=== PATIENT | male | born 1945 | race African-American/Black ===

== ENCOUNTER 2018-11-17 10:24 | Emergency (ER) | payer OTHER ==
[~2018-11-17] VITALS: Ht 175.3 cm; Wt 67.9 kg
[2018-11-17 10:56] LABS: BASOPHILS % 1.3 % (0.0-2.0); EOSINOPHILS % 1.1 % (0.0-5.0); HEMATOCRIT. 49.9 % (42.0-52.0); HEMOGLOBIN. 16.8 g/dL (14.0-18.0); LYMPHOCYTES % 20.1 % (20.0-50.0); MEAN CORPUSCULAR HEMOGLOBIN 32.4 pg (28.0-32.0); MEAN CORPUSCULAR VOLUME 96.3 fL (80.0-94.0); MONOCYTES % 5.1 % (2.0-8.0); NEUTROPHILS % 72.4 % (40.0-76.0); RED BLOOD CELL COUNT 5.18 mill/uL (4.7-6.1); RED CELL DISTRIBUTION WIDTH 14.4 % (11.6-14.6)
[2018-11-17 10:58] LABS: PROTHROMBIN TIME 10.2 sec (9.6-11.0)
[2018-11-17 10:59] LABS: CHLORIDE 109 mEq/L (98-107)
[2018-11-17 11:05] LABS: ETHANOL BLOOD < 10 mg/dL
[2018-11-17 11:06] LABS: LDL CHOLESTEROL 129 mg/dL (5-100)
[2018-11-17 11:11] LABS: MEAN PLATELET VOLUME 9.6 fl (7.4-10.4); PLATELET 168 x1000/uL (130-400)
[2018-11-17 11:12] LABS: PLATELET ESTIMATE NORMAL
[2018-11-17] MEDS ORDERED: ASPIRIN 325MG EC TABLET PO ONE (12:30)
[2018-11-17 13:09] LABS: CLARITY URINE CLEAR (CLEAR); COLOR URINE YELLOW (YELLOW); KETONES URINE NEGATIVE (NEGATIVE); LEUKOCYTE ESTERASE URINE NEGATIVE (NEGATIVE); NITRITE URINE NEGATIVE (NEGATIVE); OCCULT BLOOD URINE NEGATIVE (NEGATIVE); PH URINE 6.5 (4.5-8.0); PROTEIN URINE NEGATIVE (NEGATIVE); SPECIFIC GRAVITY URINE 1.006 (1.005-1.030); UROBILINOGEN URINE 0.2 E.U./dL (0.2-1.0)
[2018-11-17 13:39] LABS: *AMPHETAMINES SCREEN URINE NEGATIVE (NEGATIVE); *BARBITURATES SCREEN URINE NEGATIVE (NEGATIVE); *BENZODIAZEPINES SCREEN URINE NEGATIVE (NEGATIVE); *COCAINE SCREEN URINE NEGATIVE (NEGATIVE)
[2018-11-17 13:40] LABS: CANNABINOID URINE SCREEN NEGATIVE (NEGATIVE); METHADONE URINE SCREEN NEGATIVE (NEGATIVE); OPIATES URINE SCREEN NEGATIVE (NEGATIVE); PHENCYCLIDINE URINE SCREEN NEGATIVE (NEGATIVE)
[2018-11-17 17:04] VITALS: BP 154/82
== END 2018-11-17 17:29 | disposition short-term general hospital (02) ==
LOC: ER 10:24 → CANBEDREQ 16:33 → ER 17:29
DX: R53.1 Weakness (principal); R29.810 Facial weakness; I10 Essential (primary) hypertension; Z86.73 Personal history of transient ischemic attack (TIA), and cerebral infarction without residual deficits; F17.210 Nicotine dependence, cigarettes, uncomplicated; Z71.6 Tobacco abuse counseling
CPT/HCPCS: 36415; 71045; 80305; 80320; 81003; 82962; 83721; 84484; 93005; 99285; 99406; G0480